=== PATIENT | male | born 1975 | race Caucasian/White ===

== ENCOUNTER 2024-03-12 15:54 | Emergency (ER) | payer OTHER ==
[~2024-03-12] VITALS: Ht 177.8 cm; Wt 95.0 kg
[2024-03-12 16:01] VITALS: BP 127/71
[2024-03-12] MEDS ORDERED: LIDOcaine HCl 1% (Local Anesth.) 20 ML VIAL STI STA (16:06)
[2024-03-12] MEDS ORDERED: SODIUM CHLORIDE 500 ML BTL IR ONE (16:10)
[2024-03-12] MEDS ORDERED: NEOMYCIN-BACITRACIN-POLYMYXIN 0.5 GM/PAK PAK TOP ONE (16:10)
[2024-03-12] MEDS ORDERED: BUPIVACAINE HCL PF 0.5 % 50 MG/10 ML SDV STI ONE (16:10)
[2024-03-12] MEDS ORDERED: POVIDONE IODINE 0.5 OZ/BTL TOP ONE (16:10)
[2024-03-12 16:16] VITALS: BP 113/67
[2024-03-12 16:31] VITALS: BP 108/78
[2024-03-12 16:45] VITALS: BP 112/73
[2024-03-12 17:00] VITALS: BP 108/72
[2024-03-12] MEDS ORDERED: STERILE WATER 10 ML/VIAL SDV IM ONE (17:40)
[2024-03-12] MEDS ORDERED: ceFAZolin 1 GM/VIAL SDV IM ONE (17:40)
[2024-03-12] MEDS ORDERED: PERCOCET 5/321 COMBO PO (17:42)
[2024-03-12] MEDS ORDERED: KEFLEX500 MG PO (17:42)
[2024-03-12 17:45] VITALS: BP 108/72
== END 2024-03-12 18:13 | disposition home or self-care (01) | DRG 563 ==
LOC: ED 15:54
PROC: 0JQK3ZZ Repair Left Hand Subcutaneous Tissue and Fascia, Percutaneous Approach (ICD-10-PCS; principal; 2024-03-12)
DX: S62.637B Displaced fracture of distal phalanx of left little finger, initial encounter for open fracture (principal); W23.1XXA Caught, crushed, jammed, or pinched between stationary objects, initial encounter; Y92.9 Unspecified place or not applicable; Y99.0 Civilian activity done for income or pay